=== PATIENT | female | born 1970 | race Caucasian/White ===

== ENCOUNTER 2019-07-18 11:24 | Outpatient (CLI) | payer BC, SELFPAY ==
--- NOTE | 2019-07-18 | ECG_ITS ---
Measurements Intervals Cody Rate: 84 P: 48 NV: 174 QRS: 25 QRSD: 86 T: 34 QT: 365 QTc: 434 Interpretive Statements SINUS RHYTHM NONSPECIFIC T-WAVE ABNORMALITY- ANTERIOR LEADS BORDERLINE ECG Electronically Signed On 07-18-2019 12:53:57 CDT by Ramez Mercedes D.O.
== END 2019-07-18 11:25 | disposition home or self-care (01) ==
LOC: ANHLAB 11:26
PROVIDERS: PCP Family Medicine; Visit Provider Podiatrist Foot & Ankle Surgery
DX: R03.0 Elevated blood-pressure reading, without diagnosis of hypertension (principal)
CPT/HCPCS: 93005

== ENCOUNTER 2019-09-03 14:47 | Outpatient (CLI) | payer BC, SELFPAY ==
--- NOTE | ~2019-09-03 | MM_ITS ---
EXAMINATION: MM screening blade BI w britany HISTORY: Screening mammogram TECHNIQUE: Craniocaudal and mediolateral oblique 3-D tomosynthesis images were obtained and synthetic 2-D images were generated. CAD analysis was submitted and interpreted. COMPARISON: 08/29/2011 left breast ultrasound 02/22/2011 bilateral diagnostic digital mammogram and left breast ultrasound 01/25/2010 bilateral digital screening mammogram BREAST PARENCHYMAL COMPOSITION: There are scattered areas of fibroglandular density. FINDINGS: Stable mild fibroglandular asymmetry. Scattered bilateral benign calcifications. There is n o evidence of suspicious mass, calcification, or architectural distortion to suggest malignancy in ei ther breast. There has been no suspicious interval change. IMPRESSION: 1. No mammographic evidence of malignancy. 2. Recommend routine screening mammography in one year. BI-RADS Category 2: Benign finding(s). Reviewed, dictated and finalized at location A.
--- NOTE | ~2019-09-03 | US_ITS ---
EXAMINATION: US soft tissue head and neck DATE: 09/03/2019 16:02 INDICATION: Palpable enlargement at the right sternoclavicular region TECHNIQUE: Multiple grayscale and Doppler ultrasound images of the region of concern anteroinferior r ight neck and contralateral left neck for comparison were obtained. COMPARISON: None FINDINGS: Incidental anechoic 8 mm likely benign cyst at the left thyroid. Partially visualized 1.8 x 0.7 cm hy poechoic nodule at the left side of the thyroid isthmus. Soft tissues of the left and right neck. Oth erwise normal and symmetric. No abnormal masses or fluid collections identified the region of concern at the right neck. IMPRESSION: 1. No abnormal masses, fluid collections or other etiology for reported right neck region of enlarge ment at the right neck. 2. Partially visualized 1.8 x 0.7 cm hypoechoic solid left thyroid nodule. Recommend formal thyroid u ltrasound for definitive determination and risks stratification. Reviewed, dictated and finalized at location A. IMPRESSION: 1. No abnormal masses, fluid collections or other etiology for reported right n carmela region of enlargement at the right neck. 2. Partially visualized 1.8 x 0.7 cm hypoechoic solid left thyroid nodule. Scooter mmend formal thyroid ultrasound for definitive determination and risks stratifi cation.
== END 2019-09-03 14:48 | disposition home or self-care (01) ==
PROVIDERS: PCP Family Medicine; Visit Provider Nurse Practitioner Family
DX: R22.1 Localized swelling, mass and lump, neck (principal); Z12.31 Encounter for screening mammogram for malignant neoplasm of breast; E04.1 Nontoxic single thyroid nodule
CPT/HCPCS: 76536; 77063; 77067

== ENCOUNTER 2020-01-18 11:41 | Outpatient (NON) | payer BC, SELFPAY ==
[2020-01-19 21:18] LABS: SARS-CoV-2 RNA PCR Positive
== END 2020-01-18 11:42 ==
LOC: ANHCOVIDDT 11:43
PROVIDERS: PCP Family Medicine; Visit Provider Nurse Practitioner Family
DX: U07.1 COVID-19 (principal); R68.89 Other general symptoms and signs
CPT/HCPCS: 87635; C9803; U0003

== ENCOUNTER → 2021-08-07 11:28 | Outpatient (CLI) | payer BC, SELFPAY ==
--- NOTE | ~2021-08-07 | US_ITS ---
US thyroid INDICATION: Nontoxic thyroid nodule TECHNIQUE: Real-time sonographic images of the thyroid gland were obtained. COMPARISON: Ultrasound dated 09/03/2019 FINDINGS: The right thyroid lobe measures 5.3 x 1.7 x 1.5 cm. The left thyroid lobe measures 5.6 x 1 .7 x 1.9 cm. There are small bilateral thyroid cysts which are benign. In the left lobe there is a mi xed cystic and solid mass which is slightly hyperechoic, wider than tall, irregular margins and no si gnificant calcifications measuring 2.6 x 2.7 x 1.4 cm which meet criteria for biopsy. Normal vascular flow is present. IMPRESSION: 1. Largely solid mass of the left thyroid lobe measuring up to 2.7 cm maximum dimension. Ultrasound- guided left fine-needle aspiration biopsy recommended. Reviewed, dictated and finalized at location A. IMPRESSION: 1. Largely solid mass of the left thyroid lobe measuring up to 2.7 cm maximum dimension. Ultrasound-guided left fine-needle aspiration biopsy recommended.
== END ==
PROVIDERS: PCP Family Medicine; Visit Provider Nurse Practitioner Family
DX: E04.1 Nontoxic single thyroid nodule (principal)
CPT/HCPCS: 76536

== ENCOUNTER 2021-08-23 09:07 | Outpatient (CLI) | payer BC, SELFPAY ==
--- NOTE | ~2021-08-23 | US_ITS ---
EXAMINATION: US FNA w image guidance DATE: 08/23/2021 10:17 INDICATION: Thyroid mass TECHNIQUE: A time-out was performed to verify the patient's name, date of , and procedure to be performed . The procedure and its benefits and risks were discussed with the patient. Risks specifically discus sed included bleeding and infection. The patient understood the risks and agreed to proceed. The neck was prepped and draped in the usual sterile manner. 3 mL 1% lidocaine was used for local anesthesia . 6 passes were made with a 25G needle into the lesion. Appropriate needle location was documented with continuous sonographic guidance. A sterile bandage was applied. There were no immediate complic ations. FINDINGS: Grayscale ultrasound images demonstrate biopsy needles advanced into a 2.7 cm solid mass at the left side of the thyroid isthmus. IMPRESSION: 1. Successful ultrasound-guided fine needle aspiration of a 2.7 cm mass at the left side of the thyr oid isthmus. Reviewed, dictated and finalized at location A. IMPRESSION: 1. Successful ultrasound-guided fine needle aspiration of a 2.7 cm mass at the left side of the thyroid isthmus.
== END 2021-08-23 09:08 | disposition home or self-care (01) ==
PROVIDERS: PCP Family Medicine; Visit Provider Nurse Practitioner Family
DX: E07.9 Disorder of thyroid, unspecified (principal)
CPT/HCPCS: 10005; 88173; 88305

== ENCOUNTER 2022-02-25 09:55 | Outpatient (CLI) | payer BC, SELFPAY ==
--- NOTE | ~2022-02-25 | US_ITS ---
EXAMINATION: US thyroid DATE: 02/25/2022 11:22 INDICATION: Nontoxic single thyroid nodule. TECHNIQUE: Multiple ultrasound images of the thyroid were obtained. COMPARISON: Ultrasound 08/07/2021, 08/23/21 FINDINGS: The right thyroid lobe measures 5.0 x 1.6 x 1.5 cm. The left thyroid lobe measures 5.1 x 1.5 x 1.8 c m. In the right thyroid lobe, there is a 5 mm almost entirely cystic nodule (TI-RADS TR1). In the le ft thyroid lobe, there is a 9 mm solid hypoechoic, wider than tall nodule with smooth margin without echogenic foci (TR4). In the left thyroid lobe, there is a 4 mm nodule. In the thyroid isthmus, there is a 2.7 cm predominantly solid, hypoechoic, wider than tall nodule with smooth margin without echog enic foci (TR4), stable from 08/23/2021 when biopsy was benign. IMPRESSION: 1. Multinodular goiter, likely not clinically significant. No follow-up is needed. Reviewed, dictated and finalized at location A. 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 Multinodular goiter, likely not clinically significant. No follow-up is need ed.
--- NOTE | ~2022-02-25 | MM_ITS ---
EXAMINATION: MM screening [facility] BI w britany HISTORY: Screening TECHNIQUE: Craniocaudal and mediolateral oblique 3-D tomosynthesis images were obtained and synthetic 2-D images were generated. CAD analysis was submitted and interpreted. COMPARISON: Comparison to multiple prior studies sequentially, with oldest reviewed study dated 01/11. BREAST PARENCHYMAL COMPOSITION: The breasts are heterogeneously dense, which may obscure small masses . FINDINGS: There is a pleomorphic cluster of calcifications in the upper outer quadrant of the left br east. The right breast is stable without evidence for malignancy. IMPRESSION: 1. Pleomorphic left breast calcifications clustered in the upper outer quadrant. 2. Magnification views are recommended. BI-RADS Category 0: Incomplete: Needs additional imaging evaluation. Reviewed, dictated and finalized at location B. 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 Pleomorphic left breast calcifications clustered in the upper outer quadrant . 2. Magnification views are recommended. BI-RADS Category 0: Incomplete: Needs additional imaging evaluation.
--- NOTE | ~2022-02-25 | DEXA_ITS ---
Bone Density Report Name: JUICE BHAKTA Age: 51 Sex: Female Ethnicity: White Date of : 1970 Indication: postmenopausal; screening for osteoporosis; prior fracture; hysterectomy; secondary osteoporosis; Referring Provider: JUSTINA CHAVIRA Study: Bone densitometry was performed. Exam Date: February 25, 2022 Accession number: [id number] Bone Density: Region BMD T-score Z-score Classification AP Spine(L1-L4) 1.001 -0.4 0.6 Normal Femoral Neck (Left) 0.701 -1.3 -0.4 Osteopenia Total Hip (Left) 0.842 -0.8 -0.2 Normal Femoral Neck (Right) 0.735 -1.0 -0.1 Normal Total Hip (Right) 0.858 -0.7 -0.1 Normal Total Hip Mean 0.850 -0.8 -0.2 Normal World Health Organization criteria for BMD impression classify patients as: Normal (T-score at or above -1.0), Osteopenia (T-score between -1.0 and -2.5), or Osteoporosis (T-score at or below -2.5). 10-year Fracture Risk(1): Major Osteoporotic Fracture 9.3% Hip Fracture 0.6% Reported Risk Factors: [place] (), Neck BMD=0.701, BMI=38.9, previous fracture, secondary osteoporosis (1) FRAX(R) Version 3.08. Fracture probability calculated for an untreated patient. Fracture probability may be lower if the patient has received treatment. Clinical Information Provided by Patient: Has had a low trauma fracture Has secondary osteoporosis Has the following medical conditions: Hysterectomy Patient maximum height was 64.5 Menopause Age: 34 No regular weight bearing exercise Does not regularly consume dairy products Onset of menses at age 10 Number of children 1 Impression: The patient has low bone mass, based on the Left Femoral Neck T-score. The patient has an estimated ten-year risk of hip fracture of 0.6% and an estimated ten-year risk of major fracture of 9.3%, based on the WHO FRAX algorithm. The patient has risk factors, including: previous fracture. Discussion: BONE DENSITY IS LOW AT ONE OR MORE SKELETAL SITES. This patient's lowest T-score is low at one or more skeletal sites. It meets the World Health Organization's (WHO) criteria for ?low bone mass? (T-score between -1.0 and -2.5). The patient's 10-year risk of fracture as calculated by FRAX is less than the threshold where pharmacological therapy is recommended by the National Osteoporosis Foundation (NOF). However, all treatment decisions require clinical judgment and consideration of individual patient factors, including patient preferences, comorbidities, previous drug use, risk factors not captured in the FRAX model (e.g., frailty, falls, vitamin D deficiency, increased bone turnover, interval significant decline in bone density) and possible under or overestimation of fracture risk by FRAX. The patient should follow a healthful lifestyle (good nutrition with adequate calcium and vitamin D
== END 2022-02-25 09:56 | disposition home or self-care (01) ==
PROVIDERS: PCP Family Medicine; Visit Provider Physician Assistant Medical
DX: Z12.31 Encounter for screening mammogram for malignant neoplasm of breast (principal); E04.1 Nontoxic single thyroid nodule; Z78.0 Asymptomatic menopausal state; E04.2 Nontoxic multinodular goiter; R92.8 Other abnormal and inconclusive findings on diagnostic imaging of breast; M85.852 Other specified disorders of bone density and structure, left thigh
CPT/HCPCS: 76536; 77063; 77067; 77080

== ENCOUNTER 2022-03-28 14:10 | Outpatient (CLI) | payer BC, SELFPAY ==
--- NOTE | ~2022-03-28 | MM_ITS ---
EXAMINATION: MM diagnostic blade LT w britany HISTORY: Left breast calcifications on screening mammogram TECHNIQUE: Magnification views of the left breast were performed. CAD analysis was submitted and inte rpreted. COMPARISON: 02/25/2022, 09/03/2019, 02/22/2011 FINDINGS: There are grouped calcifications in the middle third of the outer breast at the 3:00 locati on 9 cm from the nipple. These appear to be dystrophic in morphology with some punctate calcification s of indeterminate morphology. No associated mass is identified. IMPRESSION: 1. Probably benign left breast calcifications. 2. Recommend 6 month follow-up left diagnostic mammogram. BI-RADS category 3, probably benign findings. Reviewed, dictated and finalized at location A. 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
== END 2022-03-28 14:11 | disposition home or self-care (01) ==
PROVIDERS: PCP Family Medicine; Visit Provider Physician Assistant Medical
DX: R92.1 Mammographic calcification found on diagnostic imaging of breast (principal)
CPT/HCPCS: 77061; 77065; G0279

== ENCOUNTER → 2022-12-31 09:08 | Outpatient (CLI) | payer BC, SELFPAY ==
--- NOTE | ~2022-12-31 | US_ITS ---
US soft tissue LE LT 12/31/2022 09:19 Indication: Palpable area left anterior knee Procedure: High-resolution Limited soft tissue ultrasound of the left knee in the patellar region Comparison: No prior studies for comparison. Findings: Normal heterogeneous echotexture throughout the soft tissues without focal solid or cystic mass. Impression: 1: Normal limited soft tissue ultrasound of the left knee. No discrete mass. Reviewed, dictated and finalized at location A. Impression: 1: Normal limited soft tissue ultrasound of the left knee. No discrete mass.
== END ==
PROVIDERS: PCP Nurse Practitioner Family; Visit Provider Nurse Practitioner Family
DX: R22.42 Localized swelling, mass and lump, left lower limb (principal)
CPT/HCPCS: 76882

== ENCOUNTER 2023-10-28 08:30 | Outpatient (CLI) | payer OTHER, SELFPAY ==
--- NOTE | ~2023-10-28 | XR_ITS ---
XR cervical spine 4-5V DATE: 10/28/2023 08:55 INDICATION: Neck pain, shoulder pain TECHNIQUE: AP, open-mouth, lateral, swimmer's and bilateral oblique views COMPARISON: 10/08/2015 MRI cervical spine FINDINGS: There is straightening and minimal levoscoliosis of the cervical spine which may be due to muscle spasm. There is moderate degenerative disc disease at C4-5, moderately severe degenerative disc disease at C 5-6 and severe degenerative disc disease at C6-7. There is uncovertebral joint spurring particularly on the right at C3-4 and bilaterally at C5-6 encro aching upon the right C4 bilateral C6 neural foramina. C1 and C2 are normally aligned and the odontoid process is intact. No fracture or dislocation or lock ed facet or prevertebral soft tissue swelling is detected. IMPRESSION: Moderate cervical spondylosis Reviewed, dictated and finalized at location J.
--- NOTE | ~2023-10-28 | XR_ITS ---
XR shoulder RT min 2V DATE: 10/28/2023 08:55 INDICATION: Right shoulder pain TECHNIQUE: 4 views COMPARISON: None FINDINGS: Mild degenerative spurring at the right acromioclavicular joint. No fracture or dislocation, periosteal reaction or bone destruction is detected. Osteopenia. No abnormal right shoulder soft tissue calcification is detected. IMPRESSION: Mild degenerative change at the right acromioclavicular joint Osteopenia Reviewed, dictated and finalized at location J.
== END 2023-10-28 08:31 ==
LOC: MICIMG 08:32
PROVIDERS: PCP Family Medicine
DX: M43.02 Spondylolysis, cervical region (principal); M19.011 Primary osteoarthritis, right shoulder; M85.88 Other specified disorders of bone density and structure, other site
CPT/HCPCS: 72050; 73030

== ENCOUNTER 2023-12-14 04:39 | Day surgery (SDC) | payer OTHER, SELFPAY ==
[2023-12-04 15:11] VITALS: BMI 24.0
--- NOTE | 2023-12-04 15:21 | SUR.PREOP ---
Addendum entered by Sarah Lemus RN 12/05/23 10:12: Pt instructed no food or drink after midnight. Original Note: Report to the Outpatient Waiting Room, entrance under the green pavilion located off [facility], at time 0730 on date 12/14/23. Planned Procedure Time: 0930.? Time changes happen often and if your time is changed the preop area will call you the afternoon before. - You and your visitor will be asked to self-screen and do not enter if you have any COVID symptoms. Please call surgeon if you need to reschedule. - A mask is optional within the hospital at this time. Patients may have clear liquids (water, carbonated beverages, clear teas, apple juice) until 3 hours prior to surgery with a maximum of 20 ounces. - No food from midnight until time of surgery and no smoking - Infants may have breast milk until 4 hours before surgery, infant formula 6 hours prior to surgery. - Children will be allowed to drink immediately following surgery.? If applicable, please bring a bottle or sippy cup to assist with drinking. Juice, water, soda, and popsicles are readily available.? For infants on formula, please bring formula the day of surgery.? Pacifiers are allowed. Take only the following medications with a SIP of water on the morning of surgery: MAY TAKE HER RIZATRIPTAN DO NOT STOP ANY OF YOUR OTHER PRESCRIPTION MEDICATIONS PRIOR TO SURGERY EXCEPT THE FOLLOWING Medications to discontinue per physician N/A Date to take last dose N/A Please no make-up, nail kinyarwanda, hairspray, perfume, deodorant, or body powder the day of surgery.? No jewelry (including any body piercings) or valuables the day of surgery, leave them at home.? Please take a shower or bath the night before, or the morning of, surgery with an antibacterial soap.? Wear comfortable, loose fitting clothing.? Children are encouraged to wear pajamas. - Jewelry must be removed prior to entering the operating room.? Rings and piercings that are not removed may be cut off. - The hospital will not accept responsibility for valuables.? - Please leave all valuables, including medications, at home the day of surgery. If you are going home after surgery, a licensed rolloff truck driver must drive you home.? - NO public transportation without another adult if you receive anesthesia. - We recommend that an adult stay with you for 24 hours following discharge. - We also recommend that you do not drive, make important decision, drink alcoholic beverages, or take any drugs that were not prescribed by your health care provider for at least 24 hours after your discharge time. For Pediatric surgeries, we recommend two adults accompany the child home. Follow any additional instructions given to you from your surgeon. Telephone instructions given to JUICE BHAKTA and asked if any additional questions and then verbalized understanding. Patient advised to call surgeon office or pre surgery nurse liaison [phone] if any additional questions.
--- NOTE | 2023-12-14 07:06 | P.HPUP_ITS ---
History and Physical Update Update Date/Time: 12/14/23 07:06 Patient seen and examined in pre-operative holding area. No interval change in medical history or symptoms. Patient recalls previous discussion of benefits and alternatives to procedure. Continues to desire to proceed with left small finger fasciectomy . Reviewed procedure, post-op expectations and risks including but not limited to bleeding, infection, injury to tendon/nerve/vessel, decreased hand function, stiffness, RSD, no change or worsening of symptoms, recurrence, incomplete release. I discussed the possible use of assistants and their participation in the case. Patient stated understanding and signed the c onsent form wishing to proceed.
--- NOTE | 2023-12-14 07:06 | P.OP_ITS ---
Procedure Note - Detailed Date of Procedure 12/14/23 Pre-op Diagnosis left small finger dupuytren contracture Post-op Diagnosis Same Procedure Performed left small finger fasciectomy Surgeon Maureen Meyer MD [employer] bruno dawkins pa-c Anesthesia MAC Description of Procedure INFORMED CONSENT: The patient was seen and examined and marked in the pre-op area.? The patient signed the consent form. PROCEDURE IN DETAIL:The patient taken back to OR on the stretcher in supine position. Time out performed with anesthesia, surgeon and staff agreeing on patient's name site and surgery to be performed SCDs were placed on the lower extremities and inflated. A tourniquet was placed on {left} upper extremity and antibiotics given IV After anesthesia administered sedation I injected {7}cc 1%lido and 0.5% marcaine plain at the operative site The?{left upper extremity}?was prepped and draped in sterile fashion the??{left upper extremity} was? exsanguinated with Esmarch bandage and tourniquet inflated to 250mmHg I proceeded with making a longitudinal incision over the left small finger cord near its origin in the palm extending distally through skin and dermis with a 15 blade scalpel. A combination of Littler scissors and 15 blade were used to elevate skin flaps exposing the fascial cord near its origin proximally. I circumferentially dissected around the cord and then transected it sharply. I proceeded with anterograde dissection of the cord and achieved full release of the mpjoint. Next, I proceeded with making a separate incision over the retrovascular cord on the ulnar aspect of the small finger around the dipjoint. Spreading with littler scissors I identified the cord and proceeded with excision and achieved near full release of the dipjoint flexion contracture. The neurovascular bundle was protected throughout the procedure. I Irrigated with normal saline. Incisions were closed with 4-0 chromic suture. A dressing of xeroform, 4x4, sanjana, and an mayur bandage was applied after the tourniquet was let down noting the hand was warm and well perfused. The patient was then awaken from anesthesia and transferred to the recovery room in stable condition.? Complications - none EBL- 0cc Disposition - home in stable conditions Bruno Dawkins PA-C was essential for positioning, retraction, closure and dressing placement [facility] [place] B[place] Surgery - Charge Forward: Surgery Billing ([id number] for bruno)
--- NOTE | 2023-12-14 08:17 | WPDANESEPPF ---
Anes - Initial Pre Proc Eval Procedure: Operation Date: 12/14/23 09:30 Proposed Procedures p Left Palmar Fasciectomy - Maureen Meyer MD Date/Time: 12/14/23 08:17 Surgeon: Maureen Meyer MD Pre Op Diagnosis: palmar fascial fibronatosis, dupuytrens Patient Data Age: 53 Gender: F Height: 1.63 m Weight: 63.5 kg Allergies Allergy/AdvReac Type Severity Reaction Status Date / Time No Known Allergies Allergy Unknown Verified 12/04/23 15:12 Home Medications Medication Instructions Recorded Confirmed Type pen needle, diabetic 31 gauge x See Rx Instructions miscellaneous 03/14/23 12/04/23 Rx 5/16 (BD Ultra-Fine Short Pen .COMPLEX #100 ea Needle) rizatriptan 5 mg tablet 5 mg PO ONCE PRN migraine headache 04/07/23 12/04/23 Rx #7 tabs galcanezumab-gnlm 120 mg/mL See Rx Instructions .Route 05/23/23 12/04/23 Rx subcutaneous pen injector .COMPLEX #3 mL (Emgality Pen) gabapentin 100 mg capsule 100 mg PO QHS #30 caps 10/30/23 12/04/23 Rx bupropion HCl 300 mg 24 hr tablet, See Rx Instructions .Route 11/27/23 12/04/23 Rx extended release .COMPLEX #90 tabs Patient hx anesthesia problems: none Family hx anesthesia problems: none Results Review: All pre-operative results and documents have been reviewed as part of the pre-operative evaluation. [facility] Past Medical History Medical History COVID-19 Toe fracture Surgical History Surgical History H/O wrist surgery Family History Family History Mother Family history of thyroid disease COVID-19 Sibling Hypertension Grandparent Carcinoma of colon Family history of Alzheimer's disease Father Esophagus cancer Skin cancer Hypertension Other Family history of arthritis Social History Social History Smoking status: Never smoker Tobacco type: cigarettes Second hand tobacco smoke exposure: No Alcohol intake: current Alcohol use details: social Substance use: never Substance use type: does not use Do You Feel Safe in your Home?: Yes Lack of Transportation: No Lack of Food: Never True Current Housing: I Have Housing Concerned About Future Housing: No Difficulty Paying Gas/Electric Bills: No Difficulty Paying for Meds: No Currently Unemployed: No Education: High School Diploma/GED Difficulty w/ Childcare or Family Care: No Living arrangements: with family Occupation/Education: occupation 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 ) Neurological: alert and oriented Last oral intake: >/= 8 hours ASA classification: II Emergent: no Anesthetic plan: proceed Anesthesia type and monitoring: general GIVS and standard monitoring Results Review: All pre-operative results and documents have been reviewed as part of the pre-operative evaluation. Diet controlled hyperlipidemia. Ex smoker quit 1999. Informed Consent: The patient's anesthetic plan and its attendant risks and benefits were discussed with the patient/family/POA. Questions were solicited and answers provided to the satisfaction of the patient/family/POA.
[2023-12-14 08:20] VITALS: BP 151/100; PULSE 80; TEMP 36.4; O2SAT 96; BMI 41.6
[2023-12-14] MEDS: LACTATED RINGERS 1,000 ML 30 ML IV CONT (08:34)
[2023-12-14] MEDS: SCOPOLAMINE 1 MG PATCH 1 PATCH TRANSDERM (08:34)
[2023-12-14] MEDS: ceFAZolin 2 GM/D5W 50 ML 2 GM/50 ML BAG IVPB (09:18)
[2023-12-14] MEDS: LIDOCAINE HCL 1% LOCAL INJ 20 ML VIAL 5 ML INFILTRATE (09:30)
[2023-12-14 09:49] VITALS: BP 130/81; PULSE 83; RESP 18; O2SAT 97
[2023-12-14 10:45] VITALS: BP 128/86; PULSE 86; RESP 16
== END 2023-12-14 10:48 | disposition home or self-care (01) ==
PROVIDERS: PCP Family Medicine; Visit Provider Plastic Surgery
PROC: (CPT 26045; principal; 2023-12-14 09:30)
DX: M72.0 Palmar fascial fibromatosis [Dupuytren] (principal); Z79.85 Long-term (current) use of injectable non-insulin antidiabetic drugs; Z98.890 Other specified postprocedural states; Z87.891 Personal history of nicotine dependence; Z80.0 Family history of malignant neoplasm of digestive organs; Z84.0 Family history of diseases of the skin and subcutaneous tissue
CPT/HCPCS: 26123; 88304; A9270; J0690; J2003; J2004; J2704; J3010; J7120

== ENCOUNTER 2024-02-01 10:26 | Outpatient (CLI) | payer OTHER, SELFPAY ==
--- NOTE | ~2024-02-01 | MR_ITS ---
EXAMINATION: MR cervical spine wo con DATE: 02/01/2024 11:13 INDICATION: Other cervical disc degeneration, unspecified. Pain and numbness in the right arm. TECHNIQUE: Magnetic resonance imaging (MRI) of the cervical spine was performed without intravenous c ontrast. COMPARISON: Cervical spine MRI 10/08/2015 FINDINGS: There is 3 degrees levocurvature of cervical spine. There is mild kyphosis of cervical spin e. Vertebral body heights are normal. There is mildly decreased disc height at C4-C5, moderately decr eased disc height at C5-C6, and severely decreased disc height at C6-C7. The spinal cord signal inten sity is normal. The following disc levels are specifically discussed: C2-C3: The disc does not extend beyond the endplate margin. There is no uncovertebral joint osteoarth ritis. There is mild bilateral facet joint osteoarthritis. There is no neural foraminal stenosis. The re is no central canal stenosis. C3-C4: There is a central protrusion. There is severe right and moderate left uncovertebral joint ost eoarthritis. There is mild bilateral facet joint osteoarthritis. There is mild bilateral neural taz inal stenosis. There is mild central canal stenosis. C4-C5: The disc is bulging. There is mild bilateral uncovertebral joint osteoarthritis. There is mild bilateral facet joint osteoarthritis. There is mild left neural foraminal stenosis. There is mild ce ntral canal stenosis. C5-C6: The disc is bulging. There is severe bilateral uncovertebral joint osteoarthritis. There is mi ld bilateral facet joint osteoarthritis. There is mild bilateral neural foraminal stenosis. There is mild central canal stenosis with ventral indentation of the spinal cord. C6-C7: The disc is bulging. There is severe bilateral uncovertebral joint osteoarthritis. There is mi ld right facet joint osteoarthritis. There is no neural foraminal stenosis. There is mild central can al stenosis. C7-T1: The disc does not extend beyond the endplate margin. There is no uncovertebral joint osteoarth ritis. There is severe bilateral facet joint osteoarthritis. There is mild bilateral neural foraminal stenosis. There is no central canal stenosis. IMPRESSION: 1. Severe cervical spondylosis, stable from 10/08/15. Reviewed, dictated and finalized at location A. HEADER
== END 2024-02-01 10:27 | disposition home or self-care (01) ==
PROVIDERS: PCP Family Medicine
DX: M50.30 Other cervical disc degeneration, unspecified cervical region (principal); M43.02 Spondylolysis, cervical region
CPT/HCPCS: 72141

== ENCOUNTER 2024-07-22 08:41 | Outpatient (CLI) | payer OTHER, SELFPAY ==
--- NOTE | ~2024-07-22 | XR_ITS ---
XR finger 5th LT min 2V Ordering provider: Maureen Meyer MD History: . S62.627A - Displaced fracture of middle phalanx of left l... . Comparison: April 13, 2008 FINDINGS: BONES: Oblique fracture seen in the shaft of the middle phalanx of the little finger. JOINT SPACES: Normal. SOFT TISSUES: Normal. IMPRESSION: Fracture in the middle phalanx of the little finger. Reviewed, dictated and finalized at location A.
--- OUTSIDE RECORDS SUMMARY | 2024-07-22 08:47 | XMS_ITS | Clinical Summary ---
Author Organization [facility] Address [address] [place] [address] Care Team Providers Care Press Cleaner Name Role Phone Unavailable Primary Care Provider Unavailabl e Source Comments [facility],non-owned Affiliates and Associated Physician Practices is amultiple site organization consisting of ambulatory clinics and hospital sitesin [place], [place], [place] and [place]. This disclosure is being madepursuant to the Care Everywhere program and may not contain all information available regarding this patient. Last updated 17.[facility] [employer] Social History Tobacco Use Types Packs/Day Years Used Date Smoking Tobacco: Never Assessed Comments Unknown Sex and Gender Information Value Date Recorded Sex Assigned at Not on file Legal Sex Female 4:35 PM CDT Gender Identity Not on file Sexual Orientation Not on file Plan of Treatment Health Maintenance Due Date Last Done Comments COLOGUARD (AGES 45-75) - COL ON CA SCREENING 1968 COLON MONITORING 1968 COLONOSCOPY - COLON CA SCREENING 1968 CT COLONOGRAPHY - COLON CA SCREENING 1968 Colorectal Cancer Screening 1968 FIT - COLON CA SCREENING 1968 FLEX SIG - COLON CA SCREENING 1968 LIPID TESTING 1968 MAMMOGRAM 1968 PAP SMEAR 1968 HIV SCREENING 06/15/1983 HEPATITIS C SCREENING 06/10/1986 DTAP/TDAP/TD VACCINES (1 - Tdap) 06/15/1987 HEPATITIS B VACCINE (1 of 3 - 19+ 3-dose series) 06/15/1987 PNEUMOCOCCAL VACCINE 50+ (1 of 1 - PCV) 2018 ZOSTER VACCINE (1 of 2) 2018 COVID-19 VACCINE (1 - 2023-2 5 season) 2023 DEPRESSION SCREENING 03/13/2024 INFLUENZA VACCINE (Season Ended) 2024 HIB VACCINE Aged Out No longer eligi ble based on patient's age to complete this topic HPV VACCINE Aged Out No longer eligi ble based on patient's age to complete this topic MENINGOCOCCAL (Group B) VACC INE SHARED DECISION-MAKING Aged Out No longer eligibl e based on patient's age to complete this topic MENINGOCOCCAL GROUPS A/C/Y/W VACCINE Aged Out No longer eligible b ased on patient's age to complete this topic Insurance [facility] SELF PAY NO INSURANCE Member Subscriber Plan / Payer (Ef fective for All Dates) Name:Nahed Weaver Member ID:Not on file Relation to Subscriber:Not on file Name:NAHED WEAVER Subscriber ID:Not on file (Home) Address: [address] [place] [address] Payer ID:Not on file Group ID:Not on file Type:Self Pay Address: [place], [place]
--- OUTSIDE RECORDS SUMMARY | 2024-07-22 08:48 | XMS_ITS | Clinical Summary ---
Author Organization [facility] Address [address] [place] [address] Care Team Providers Care Production Designer Name Role Phone Victorino Schulte MD Primary Care Provider Allergies No known active allergies Medications prochlorperazin e (COMPAZINE) 10 MG tablet Take 1 tablet (10 mg total) by mouth every 6 (six) hours as needed (nausea, vomiting). 20 tablet 5 Active Additional Information Patient not taking.Reported on 07/08/2024 butalbital-acet aminophen-caffe ine (ESGIC) 50-325-40 MG tablet Take 1 tablet by mouth every 4 (four) hours as needed for Headaches. 20 tablet 5 Active buPROPion XL (WELLBUTRIN XL) 300 MG 24 hr tablet Take 1 tablet (300 mg total) by mouth daily. 5 Active EMGALITY 120 MG/ML Solution Auto-injector INJECT 120 MG UNDER THE SKIN MONTHLY IN THE ABDOMEN, THIGH, OUTER UPPER ARM, OR BUTTOCKS 5 Active HYDROcodone-mayur taminophen (NORCO) 5-325 MG tabletIndicatio ns:Acute Pain < 7 Day Supply Take 1 tablet by mouth every 6 (six) hours as needed. 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 [employer] - 04/26/2024 5:56 PM M[employer]ER OPER[employer] Emergency [facility] [place] [address] Shahram Hill PA URI Discharge Disposition: Home or Self Care (Routine Discharge) 04/25/2024 8:19 PM M[employer]ER OPER[employer] - 04/25/2024 9:46 PM MIXER OPERATOR [employer] Emergency [facility] [place] [address] Omar Jaimes MD Vomiting Discharge Disposition: Home or Self Care (Routine Discharge) 04/25/2024 Travel from Last 3 Months Social History Tobacco Use Types Packs/Day Years Used Date Smoking Tobacco: Never Smokeless Tobacco: Never Tobacco Cessation:Counseling Given: Not Answered Comments No Sex and Gender Information Value Date Recorded Sex Assigned at Female 04/25/2024 9:26 PM M[employer]ER OPER[employer] Legal Sex Female 8:06 PM MIXER OPER[employer] Gender Identity Not on file Sexual Orientation Not on file Last Filed Vital Signs Vital Sign Reading Time Taken Comments Blood Pressure 144/88 07/08/2024 6:11 PM CDT Pulse 80 07/08/2024 6:11 PM CDT Temperature 36.1 C (97 F) 07/08/2024 6:11 PM CDT Respiratory Rate 18 07/08/2024 6:11 PM CDT Oxygen Saturation 98% 07/08/2024 6:11 PM CDT Inhaled Oxygen Concentration - - Weight 110.7 kg (244 lb) 07/08/2024 6:11 PM CDT Height 162.6 cm (5' 4 ) 07/08/2024 6:11 PM CDT Body Mass Index 41.88 07/08/2024 6:11 PM CDT Plan of Treatment Health Maintenance Due Date Last Done Comments Colorectal Cancer Screening Colonoscopy (10 Years) 1968 Annual Physical 06/15/1971 Hepatitis C 1986 DTaP, Tdap and Td Vaccines ( 1 - Tdap) 06/15/1987 Hepatitis B Vaccines (1 of 3 - 19+ 3-dose series) 06/15/1987 Mammogram Screening 2008 Pneumococcal Vaccine: 50+ Years (1 of 1 - PCV) 2018 Zoster Vaccines (1 of 2) 2018 COVID-19 Vaccine (3 - 2023-2 5 season) 2023 12/26/2020, 11/11/2020 Meningococcal B Vaccine Aged Out No l onger eligible based on patient's age to complete this topic Meningococcal Vaccine Aged Out No yakov betty eligible based on patient's age to complete this topic RSV Immunizations Under 20 Months Aged Out No longer eligible b ased on patient's age to complete this topic Procedures Procedure Name Priority Date/Time Associated Diagnosis Comments XR HAND LT 3V STAT 07/08/2024 6:20 PM CDT ECG 12-LEAD STAT 04/26/2024 4:55 PM MIXER OPER[employer] XR CHEST PA+LAT STAT 04/26/2024 4:08 PM M[employer]ER OPER[employer] TROPONIN, QUANT Routine 04/26/2024 3:26 PM M[employer] LIPASE STAT 04/26/2024 3:26 PM M[employer]ER OPER[employer] COMPREHENSIVE METABOLIC PANEL STAT 04/26/2024 3:26 PM MIXER OPER[employer] CBC W/DIFF AUTOMATED STAT 04/26/2024 3:26 PM MIXER OPERATOR VACU[employer] SALT CT ABD+PEL W CON STAT 04/25/2024 9:01 PM MIXER OPERATOR [employer] LIPASE STAT 04/25/2024 8:33 PM MIXER OPERATOR [employer] COMPREHENSIVE METABOLIC PANEL STAT 04/25/2024 8:33 PM MIXER OPERATOR [employer] CBC W/DIFF AUTOMATED STAT 04/25/2024 8:33 PM MIXER OPERATOR [employer] from Last 3 Months Results * XR HAND LT 3V (07/08/2024 6:20 PM CDT) Anatomical Region Laterality Modality Hand Radiographic Latrice ging 07/08/2024 6:33 PM CDT Impressions 07/08/2024 6:34 PM CDT IMPRESSION: Oblique fifth middle phalangeal fracture, as described above. Referred By: Interpreted By: Sebastian Urrutia MD, 07/08/2024 6:33 PM Narrative 07/08/2024 6:34 [place] [address] Examination: XR HAND LT 3V Exam time: 07/08/2024 6:14 PM Indication: Fifth finger injury. Comparison: None available. Technique: 3 views of the left hand, 3 images. Findings: There is an oblique fracture involving the fifth middle phalanx which does not appear to have significant displacement or definitive involvement of the articular surface. No other fractures are identified. Ossification adjacent to the ulnar styloid which could represent sequelae of prior injury. Partially visualized volar plate screw fixation of the distal radius. There are mild degenerative changes of the wrist. Procedure Note Sebastian Urrutia MD - 07/08/2024 [place] [address] Examination: XR HAND LT 3V Exam time: 07/08/2024 6:14 PM Indication: Fifth finger injury. Comparison: None available. Technique: 3 views of the left hand, 3 images. Findings: There is an oblique fracture involving the fifth middle phalanxwhich does not appear to have significant displacement or definitiveinvolvement of the articular surface. No other fractures are identified.Ossification adjacent to the ulnar styloid which could represent sequelaeof prior injury. Partially visualized volar plate screw fixation of thedistal radius. There are mild degenerative changes of the wrist. IMPRESSION: Oblique fifth middle phalangeal fracture, as describedabove. Referred By: Interpreted By: Sebastian Urrutia MD, 07/08/2024 6:33 PM us Charmaine Waldrop DO GENERAL IMAGING Final Result * ECG 12 lead (04/26/2024 4:55 PM MIXER OPERATOR [employer]) 04/26/2024 4:55 PM MIXER OPERATOR [employer] Narrative [facility] ([place] - 04/26/2024 5:19 PM MIXER OPERATOR VACUUM PAN 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 [address] [place] [address] Test Date: 2024-04-26 Pat Name: JUICE WEAVER Department: 41 Room: [id number] Gender: Female Mortgage Funder: [id number] : 1970 Requested By: ABDIEL SIMPSON Order Number: [id number] Reading JESIKA Burns Measurements Intervals Farner Rate: 89 P: 53 LA: 177 QRS: 44 QRSD: 83 T: 34 QT: 346 QTc: 423 Interpretive Statements SINUS RHYTHM NONSPECIFIC T-WAVE ABNORMALITY No previous ECG available for comparison Other ischemic changes, not STEMI Preliminary EKG Interpretation by NIGHAT Goldsmith R OPERATOR [employer] us Abdiel Simpson DO ECG ORDERABLES Final Result [facility] ([place] * XR CHEST PA+LAT (04/26/2024 4:08 PM MIXER OPERATOR [employer]) Anatomical Region Laterality Modality Chest Radiographic Latrice ging 04/26/2024 4:21 PM MIXER OPERATOR [employer] Impressions 04/26/2024 4:22 PM MIXER OPERATOR [employer] =====IMPRESSION:===== Unremarkable two-view chest; no radiographic evidence of acute/active cardiopulmonary disease. Ordered By: SHAHRAM HILL Interpreted By: Michelle Kenny MD, 04/26/2024 4:21 PM Narrative 04/26/2024 4:22 PM MIXER OPERATOR [employer] [address] [address] Examination: Chest x-ray 2 view Exam date/time: 04/26/2024 3:19 PM Reason For Exam: 53 female. Cough congestion fever and emesis for 3 days Comparison: None Technique: PA upright and lateral view. Findings: Normal cardiac size. Normal position of the trachea. Hilar and mediastinal contours are within normal limits. Normal pulmonary vascularity. The lungs and pleural spaces spaces are radiographically clear; no consolidation, effusion or pneumothorax seen. Upper abdomen is unremarkable. Procedure Note Michelle Kenny MD - 04/26/[address] [address] Examination: Chest x-ray 2 view Exam date/time: 04/26/2024 3:19 PM Reason For Exam: 53 female. Cough congestion fever and emesis for 3 days Comparison: None Technique: PA upright and lateral view. Findings: Normal cardiac size. Normal position of the trachea. Hilar andmediastinal contours are within normal limits. Normal pulmonaryvascularity. The lungs and pleural spaces spaces are radiographicallyclear; no consolidation, effusion or pneumothorax seen. Upper abdomen is unremarkable. =====IMPRESSION:===== Unremarkable two-view chest; no radiographic evidence of acute/activecardiopulmonary disease. Ordered By: SHAHRAM HILL Interpreted By: Michelle Kenny MD, 04/26/2024 4:21 PM us Shahram Hill PA GENERAL IMAGING Final Resul t * (ABNORMAL) COMPREHENSIVE METABOLIC PANEL (04/26/2024 3:26 PM MIXER OPERATOR [employer]) Only the most recent of2 resultswithin the time period is included. GLUCOSE 113(H) 70 - 99 MG/DL 04/26/2024 4:[address] [facility] BUN 12 7 - 18 MG/DL 04/26/2024 4:[address] [facility] CREATININE S/P/B 0.96 0.55 - 1.02 MG/DL 04/26/2024 4:[address] [facility] SODIUM S/P/B 134(L) 136 - 145 MMOL/L 04/26/2024 4:[address] [facility] POTASSIUM S/P/B 3.8 3.5 - 5.1 MMOL/L 04/26/2024 4:[address] [facility] CHLORIDE S/P/B 100 97 - 115 MMOL/L 04/26/2024 4:[address] [facility] CO2 32.8(H) 21 - 32 MMOL/L 04/26/2024 4:[address] [facility] CALCIUM S/P/B 8.8 8.5 - 10.1 MG/DL 04/26/2024 4:[address] [facility] BILIRUBIN TOTAL S/P/B 0.3 0.2 - 1.2 MG/DL 04/26/2024 4:[address] [facility] Comment: THIS ASSAY IS NOT RECOMMENDED FOR PATIENTS UNDERGOING TREATMENT WITH ELTROMBOPAG DUE TO THE POTENTIAL FOR FALSELY ELEVATED RESULTS. TOTAL PROTEIN S/P/B 7.2 6.4 - 8.2 G/DL 04/26/2024 4:[address] [facility] ALBUMIN S/P/B 3.4 3.4 - 5.0 G/DL 04/26/2024 4:[address] [facility] AST 26 15 - 37 U/L 04/26/2024 4:[address] [facility] ALT 44 14 - 55 U/L 04/26/2024 4:[address] [facility] ALKALINE PHOSPHATASE S/P/B 119 50 - 136 U/L 04/26/2024 4:[address] [facility] ANION GAP 1.2(L) 2 - 10 MMOL/L 04/26/2024 4:[address] [facility] BUN CREATININE RATIO 12.4 6 - 26 04/26/2024 4:[address] [facility] A/G RATIO 0.9(L) 1.0 - 2.0 RATIO 04/26/2024 4:[address] [facility] GFR ESTIMATE 70(L) >90 ML/MIN/1.7 3 M2 04/26/2024 4:[address] [facility] Comment: NOTE: eGFR is not calculated for patients <18 years of age or gender unknown. This is an estimated GFR calculation using the new CKD EPI creatinine equation without race and so does not require a correction factor for race. This estimated GFR should not be used for calculating drug doses. 04/26/2024 3:26 PM MIXER OPERATOR [employer] us Shahram DISLA LABORATORY Final Resul t [facility] [address] [place] [address], * (ABNORMAL) CBC W/DIFF AUTOMATED (04/26/2024 3:26 PM MIXER OPERATOR [employer] S[employer]) Only the most recent of2 resultswithin the time period is included. Pathologist [facility] WBC 9.38 4.5 - 11.0 x10'3/uL 04/26/2024 3:40 PM M[employer] OPER[employer] [facility] RBC 4.66 4.20 - 5.40 x10'6/uL 04/26/2024 3:40 PM MIXER OPER[employer] [facility] HGB 13.9 12.0 - 16.0 G/DL 04/26/2024 3:40 PM MIXER OPER[employer] [facility] HCT 43.1 38.0 - 48.0 % 04/26/2024 3:40 PM MIXER OPERATOR [employer] [facility] MCV 92.5 81.0 - 99.0 FL 04/26/2024 3:40 PM MIXER OPERATOR [employer]ALT [facility] MCH 29.8 27.0 - 31.0 PG 04/26/2024 3:40 PM MIXER OPERATOR [employer] SALT [facility] MCHC 32.3 32.0 - 36.0 G/DL 04/26/2024 3:40 PM MIXER OPERATOR [employer] [facility] RDW 13.9 11.5 - 14.5 % 04/26/2024 3:40 PM MIXER OPERATOR [employer] [facility] PLT 195 130 - 400 x10'3/uL 04/26/2024 3:40 PM MIXER OPERATOR [employer] [facility] MPV 11.2 9.3 - 12.2 FL 04/26/2024 3:40 PM MIXER OPERATOR [employer] [facility] DIFFERENTIAL TYPE MANUAL DIFFERENTIAL 04/26/2024 4:03 PM MIXER OPERATOR [employer] [facility] SEG NEUTROPHILS 93 % 4:03 PM MIXER OPERATOR [employer]ALT [facility] LYMPHOCYTES 2 % 04/26/2024 4:03 PM MIXER OPERATOR [employer]ALT [facility] MONOCYTES 5 % 04/26/2024 4:03 PM MIXER OPERATOR [employer]ALT [facility] ABS. NEUTROPHILS 8.72(H) 1.80 - 7.70 x10'3/uL 04/26/2024 4:03 PM MIXER OPERATOR [employer]ALT [facility] ABS. LYMPHOCYTES 0.19(L) 1.00 - 4.80 x10'3/uL 04/26/2024 4:03 PM MIXER OPERATOR [employer] SALT [facility] ABS. MONOCYTES 0.47 0.24 - 0.86 x10'3/uL 04/26/2024 4:[address] [facility] RBC MORPHOLOGY RBC MORPHOLOGY APPEARS NORMAL. SLIDE REVIEWED. 04/26/2024 4:[address] [facility] PLT EST. ADEQUATE 04/26/2024 4:[address] [facility] 04/26/2024 3:26 PM MIXER OPERATOR [employer] SALT us Shahram DISLA LABORATORY Final Resul t [facility] [address] [place] [address], * TROPONIN, QUANT (04/26/2024 3:26 PM MIXER OPERATOR [employer]) TROPONIN I HIGH SENSITIVITY 6 <54 ng/L 04/26/2024 5:12 PM MIXER OPERATOR [employer] SALT [facility] Comment: HIGH DOSES OF BIOTIN, TROPONIN-SPECIFIC AUTOANTIBODIES, AND ANTIBODY THERAPY CONTAINING HAMA MAY INTERFERE WITH THIS TEST RESULT. CORRELATION TO CLINICAL HISTORY AND PRESENTATION RECOMMENDED. 04/26/2024 3:26 PM MIXER OPERATOR [employer]ALT Abdiel Simpson DO LABORATORY Final Result [facility] [address] [place] [address], [place] [phone] * LIPASE (04/26/2024 3:26 PM MIXER OPERATOR [employer]) Only the most recent of2 resultswithin the time period is included. LIPASE 34 13 - 75 UNITS/L 04/26/2024 4:10 PM MIXER OPERATOR [employer] [facility] 04/26/2024 3:26 PM MIXER OPERATOR [employer]UM [employer] SALT Shahram DISLA LABORATORY Final Resul t Performing Organization Address [facility] Co de Phone Number [facility] [address] [place] [id number], [place] [phone] * CT ABD+PEL W IV CON ONLY (04/25/2024 9:01 PM MIXER OPERATOR [employer] S[employer]) Anatomical Region Laterality Modality Abdomen Computed Tomogra phy 04/25/2024 9:00 PM MIXER OPERATOR [employer] Impressions 04/25/2024 9:08 PM MIXER OPERATOR [employer]ALT IMPRESSION: 1. No acute finding is seen in the abdomen or pelvis to account for the patient's symptoms. 2. Cholelithiasis without CT evidence to suggest acute cholecystitis. Referred By: Interpreted By: Mark Kaiser DO, 04/25/2024 9:00 PM Narrative 04/25/2024 9:08 PM MIXER OPERATOR [employer]ALT [facility] [address] [place], [place] [address] EXAMINATION: CT ABD+PEL W CON EXAM DATE: 04/25/2024 8:50 PM CLINICAL HISTORY: Abdominal pain and vomiting. Nausea, vomiting, chills, headache, and abdominal pain. COMPARISON: None. TECHNIQUE: Axial CT of the abdomen and pelvis was performed following intravenous administration of 140cc of Isovue-370. Coronal and sagittal reformatted reviewed. A radiation dose lowering technique was used for this procedure, which may include, but is not limited to, dose reduction technique, automated exposure control, the use of iterative reconstruction, ALARA (As Low As Reasonably Achievable) techniques, and Image Gently techniques FINDINGS: VISUALIZED LOWER THORAX: The included lung bases are clear of active opacities. The incompletely visualized heart is not enlarged. HEPATOBILIARY: The liver is normal in size without gross contour abnormality. No suspicious hepatic lesion is seen. There is cholelithiasis without CT evidence to suggest acute cholecystitis. There is no biliary ductal dilatation. The pancreas is negative. SPLEEN: The spleen is normal in size. GENITOURINARY: There is adenomatous hypertrophy of the medial limb of the left adrenal gland without discrete nodularity. There is no right adrenal mass. There is a tiny focus of hypoattenuation in the lower pole of the right kidney that is too small to technically characterize but likely reflects a tiny cyst. The kidneys otherwise demonstrate symmetric parenchymal enhancement without evidence to suggest hydronephrosis or perinephric abnormality. The urinary bladder is poorly distended and poorly evaluated. The uterus is surgically absent. A small nodular focus situated to the right of the rectum could reflect a residual right ovarian tissue. AORTA: The abdominal aorta is normal in caliber. LYMPH NODES: There is no retroperitoneal, pelvic, or mesenteric adenopathy. GASTROINTESTINAL: There is no gastric or small bowel dilatation. The appendix is nondilated. No evidence is seen to suggest bowel obstruction. PERITONEUM: There is no free intraperitoneal fluid or air. MUSCULOSKELETAL: There is no destructive osseous lesion. Moderate degenerative disc disease affects the visualized lower thoracic spine. Facet joint osteoarthritis affects the lower lumbar spine. Procedure Note Mark Kaiser DO - 04/25/[address] [address] EXAMINATION: CT ABD+PEL W CON EXAM DATE: 04/25/2024 8:50 PM CLINICAL HISTORY: Abdominal pain and vomiting. Nausea, vomiting, chills,headache, and abdominal pain. COMPARISON: None. TECHNIQUE: Axial CT of the abdomen and pelvis was performed following intravenousadministration of 140cc of Isovue-370. Coronal and sagittal reformattedreviewed. A radiation dose lowering technique was used for this procedure,which may include, but is not limited to, dose reduction technique,automated exposure control, the use of iterative reconstruction, ALARA (AsLow As Reasonably Achievable) techniques, and Image Gently techniques FINDINGS: VISUALIZED LOWER THORAX: The included lung bases are clear of active opacities. The incompletelyvisualized heart is not enlarged. HEPATOBILIARY: The liver is normal in size without gross contour abnormality. Nosuspicious hepatic lesion is seen. There is cholelithiasis without CTevidence to suggest acute cholecystitis. There is no biliary ductaldilatation. The pancreas is negative. SPLEEN: The spleen is normal in size. GENITOURINARY: There is adenomatous hypertrophy of the medial limb of the left adrenalgland without discrete nodularity. There is no right adrenal mass. Thereis a tiny focus of hypoattenuation in the lower pole of the right kidneythat is too small to technically characterize but likely reflects a tinycyst. The kidneys otherwise demonstrate symmetric parenchymal enhancementwithout evidence to suggest hydronephrosis or perinephric abnormality.The urinary bladder is poorly distended and poorly evaluated. The uterusis surgically absent. A small nodular focus situated to the right of therectum could reflect a residual right ovarian tissue. AORTA: The abdominal aorta is normal in caliber. LYMPH NODES: There is no retroperitoneal, pelvic, or mesenteric adenopathy. GASTROINTESTINAL: There is no gastric or small bowel dilatation. The appendix is nondilated.No evidence is seen to suggest bowel obstruction. PERITONEUM: There is no free intraperitoneal fluid or air. MUSCULOSKELETAL: There is no destructive osseous lesion. Moderate degenerative discdisease affects the visualized lower thoracic spine. Facet jointosteoarthritis affects the lower lumbar spine. IMPRESSION: 1. No acute finding is seen in the abdomen or pelvis to account for thepatient's symptoms. 2. Cholelithiasis without CT evidence to suggest acute cholecystitis. Referred By: Interpreted By: Mark Kaiser DO, 04/25/2024 9:00 PM César G Lawrence PA-C CT Final Resul t from Last 3 Months Insurance [employer] Care Teams Production Designer Relationship Specialty Start Date End Date Victorino Schulte MD [address] [place] [address] PCP - General FAMILY PRACTICE 04/25/24
== END 2024-07-22 08:42 | disposition home or self-care (01) ==
PROVIDERS: PCP Family Medicine; Visit Provider Plastic Surgery
DX: S62.627A Displaced fracture of middle phalanx of left little finger, initial encounter for closed fracture (principal); X58.XXXA Exposure to other specified factors, initial encounter
CPT/HCPCS: 73140

== ENCOUNTER 2024-12-23 11:44 | Outpatient (CLI) | payer OTHER, SELFPAY ==
--- NOTE | ~2024-12-23 | US_ITS ---
EXAMINATION: US renal BI, 12/23/2024 11:46 CDT HISTORY: N18.30 - Chronic kidney disease, stage 3 unspecified Comparison: None Technique: Arias-scale and color Doppler images were obtained. Findings: KIDNEYS: Renal cortices intact, no solid masses, cysts or calculi, no hydronephrosis. Right Kidney: Right kidney 9.4 x 3.9 x 5.1 cm. Left Kidney: Left kidney 9.9 x 6.2 x 5.4 cm. Bladder: The bladder is unremarkable. . Impression: No acute abnormality. Reviewed, dictated and finalized at location P. Impression: No acute abnormality.
== END 2024-12-23 11:45 | disposition home or self-care (01) ==
LOC: MICIMG 11:44
PROVIDERS: PCP Family Medicine; Visit Provider Nurse Practitioner Adult Health
DX: N18.30 Chronic kidney disease, stage 3 unspecified (principal)
CPT/HCPCS: 76770